=== PATIENT | male | born 1930 | race Asian ===

== ENCOUNTER 2018-12-19 19:14 | Inpatient (IN) | payer MEDICARE, BC ==
[~2018-12-19] VITALS: Ht 165.1 cm; Wt 50.8 kg
[2018-12-19 19:38] VITALS: BP 168/93
--- NOTE | 2018-12-19 19:38 | NUR ---
ER Nurse Note: Pt LEVAR RA 29 from home c/o headache since 12/18. s/p fal with BS 480 at bedside. Pt has wound on forehead; circular in size, no active bleeding. Pt states 4/10 pain in the head, aching. Pt a&ox4, VSS, no signs of distress. Will continue to monitor.
[2018-12-19 20:11] LABS: BASOPHILS % (AUTO) 0.2 % (0.0-2.0); EOSINOPHILS % (AUTO) 2.6 % (0.0-3.0); HEMATOCRIT 37.3 % (42.0-52.0); HEMOGLOBIN 12.9 G/DL (14.2-18.0); LYMPHOCYTES % (AUTO) 26.5 % (20.0-45.0); MEAN CORPUSCULAR VOLUME 91 FL (80-99); MONOCYTES % (AUTO) 4.5 % (1.0-10.0); NEUTROPHILS % (AUTO) 66.3 % (45.0-75.0); PLATELET COUNT 197 K/UL (150-450); RED BLOOD COUNT 4.08 M/UL (4.70-6.10); RED CELL DISTRIBUTION WIDTH 10.8 % (11.6-14.8); WHITE BLOOD COUNT 5.6 K/UL (4.8-10.8)
[2018-12-19 20:18] LABS: INR 0.9 (0.9-1.1)
[2018-12-19 20:33] LABS: ALANINE AMINOTRANSFERASE 12 U/L (12-78); ALBUMIN 3.9 G/DL (3.4-5.0); ALKALINE PHOSPHATASE 104 U/L (46-116); ANION GAP 11 mmol/L (5-15); ASPARTATE AMINO TRANSFERASE 15 U/L (15-37); BILIRUBIN,TOTAL 0.4 MG/DL (0.2-1.0); BLOOD UREA NITROGEN 25 mg/dL (7-18); CALCIUM 9.7 MG/DL (8.5-10.1); CARBON DIOXIDE 23 MMOL/L (21-32); CHLORIDE 96 MMOL/L (98-107); CREATININE 1.5 MG/DL (0.55-1.30); POTASSIUM 4.1 MMOL/L (3.5-5.1); SODIUM 130 MMOL/L (136-145)
--- NOTE | 2018-12-19 20:39 | Diagnostic Imaging Report ---
Indication: Reason For Exam: H/A Technique: Continuous helical CT scanning of the head was performed without intravenous contrast material. Axial and coronal 5 mm sections were generated. Radiation dose was minimized using automated exposure control Dose: Total Dose Length Product - DLP 1383.[address] Dose Index - CTDIvol(s) 70.38 mGy. Comparison: None available. FINDINGS: There is no acute intracranial hemorrhage, mass effect or cortical edema. The ventricles, cisterns and sulci are normal for age. There is moderate, predominantly frontal cortical cerebral volume loss. There are patchy subcortical and periventricular white matter hypodensities consistent with chronic ischemic microvascular disease. Mild maxillary sinus mucosal thickening. No focal lesions of the bony calvarium or soft tissues of the scalp are seen. IMPRESSION: No evidence of acute intracranial hemorrhage, mass effect or cortical edema. These findings are concordant with the [facility] preliminary report. The CT scanner at [facility] is accredited by the [employer] and the scans are performed using protocols designed to limit radiation exposure to as low as reasonably achievable to attain images of sufficient resolution adequate for diagnostic evaluation.
[2018-12-19] MEDS ORDERED: UNOBMED (20:59)
[2018-12-19] MEDS ORDERED: Insulin Human Regular 100units/ml 3ml IV ONE ×2 (21:00→22:45)
[2018-12-19 21:08] LABS: APPEARANCE,URINE CLEAR; BILIRUBIN, URINE NEGATIVE (NEGATIVE); COLOR,URINE PALE YELLOW; GLUCOSE, URINE (UA) 4+ (NEGATIVE); KETONES,URINE NEGATIVE (NEGATIVE); LEUKOCYTE ESTERASE ,URINE NEGATIVE (NEGATIVE); NITRITE,URINE NEGATIVE (NEGATIVE); PH,URINE 5 (4.5-8.0); PROTEIN,URINE 1+ (NEGATIVE); UROBILINOGEN,URINE NORMAL MG/DL (0.0-1.0)
[2018-12-19 22:00] VITALS: BP 145/76
--- NOTE | 2018-12-19 22:03 | NUR ---
ER Nurse Note: Pt calm, cooperative, no signs of distress. Pt on RA, VSS. Will recheck blood surgar after IVF and post administration of insulin. All orders completed per ERMD orders. Pending admission. All safety measrues met; mandeep continue to montior.
--- NOTE | 2018-12-19 22:05 | Emergency Room Report ---
History of Present Illness General Chief Complaint: Headache Source: Patient, Family Member Present Illness HPI 88-year-old male presents ED for evaluation. Brought in by EMS from home complaining of headache. States that he tripped and fell yesterday hitting his head. States he felt dizzy. Questionable LOC. Per EMS Accu-Chek was critically high. History of diabetes. Denies chest pain or shortness of breath. Denies fevers or chills. Pain is dull, 7 out of 10, nonradiating. Denies photophobia or blurry vision. Denies nausea or vomiting. No other aggravating relieving factors. Denies any other associated symptoms Allergies: Coded Allergies: No Known Allergies (Unverified , 12/19/18) Patient History Past Medical History: DM Past Surgical History: none Pertinent Family History: none Social History: Denies: smoking, alcohol use, drug use Immunizations: UTD Reviewed Nursing Documentation: PMH: Agreed; PSxH: Agreed Nursing Documentation-PMH Past Medical History: No History, Except For Hx Diabetes: Yes Review of Systems All Other Systems: negative except mentioned in HPI Physical Exam Vital Signs Date Time Temp Pulse Resp B/P (MAP) Pulse Ox O2 Delivery O2 Flow Rate FiO2 12/19/18 19:10 98.1 86 16 168/93 (118) 100 Room Air Sp02 EP Interpretation: reviewed, normal General Appearance: no apparent distress, alert, GCS 15, non-toxic Head: normocephalic, atraumatic Eyes: bilateral eye normal inspection, bilateral eye PERRL ENT: hearing grossly normal, normal pharynx, no angioedema, normal voice Neck: full range of motion, supple/symm/no masses Respiratory: chest non-tender, lungs clear, normal breath sounds, speaking full sentences Cardiovascular #1: regular rate, rhythm, no edema Cardiovascular #2: 2+ carotid (R), 2+ carotid (L), 2+ radial (R), 2+ radial (L) , 2+ dorsalis pedis (R), 2+ dorsalis pedis (L) Gastrointestinal: normal bowel sounds, non tender, soft, non-distended, no guarding, no rebound Rectal: deferred Genitourinary: normal inspection, no CVA tenderness Musculoskeletal: back normal, gait/station normal, normal range of motion, non- tender Neurologic: alert, oriented x3, responsive, motor strength/tone normal, sensory intact, speech normal Psychiatric: judgement/insight normal, memory normal, mood/affect normal, no suicidal/homicidal ideation Reflexes: 3+ bicep (R), 3+ bicep (L), 3+ tricep (R), 3+ tricep (L), 3+ knee (R) , 3+ knee (L) Lymphatic: no adenopathy Medical Decision Making Diagnostic Impression: Primary Impression: Syncope Qualified Codes: R55 - Syncope and collapse Additional Impressions: Head injury Qualified Codes: S09.90XA - Unspecified injury of head, initial encounter Hyperglycemia Renal insufficiency ER Course Hospital Course 88 yo M presents with syncopal episode + head injury. accucheck high Differential diagnoses include: CO/unstable angina, arrythmia, dehydration, CVA/ TIA, DKA Clinical course Patient placed on stretcher. 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 After initial history and physical I ordered labs, EKG, IVFs, CT Brain labs reviewed- no leukocytosis, hemoglobin/hematocrit ok, BUN/Cr elevated, glucose > 500 no evidence of DKA. UA negative EKG- NSR no acute ischemic changes inteprreted by me CT brain-unremarkable Given IV fluids. Given insulin. Case discussed with Dr. Kendrick and he agreed to accept the patient to his service for further care and support I. I feel this is a highly complex case requiring extensive working including EKG/Rhythm strip, Xray/CT/US, Blood/urine lab work, repeat exams while in ED, and administration of strong opiates/narcotics for pain control, admission to hospital or close patient follow up. Diagnosis - syncope, head injury, hypergylcemia, renal insufficiency admitted to telemetry in serious condition Labs Test 12/19/18 19:30 12/19/18 20:10 White Blood Count 5.6 K/UL (4.8-10.8) Red Blood Count 4.08 M/UL (4.70-6.10) Hemoglobin 12.9 G/DL (14.2-18.0) Hematocrit 37.3 % (42.0-52.0) Mean Corpuscular Volume 91 FL (80-99) Mean Corpuscular Hemoglobin 31.5 PG (27.0-31.0) Mean Corpuscular Hemoglobin Concent 34.5 G/DL (32.0-36.0) Red Cell Distribution Width 10.8 % (11.6-14.8) Platelet Count 197 K/UL (150-450) Mean Platelet Volume 6.1 FL (6.5-10.1) Neutrophils (%) (Auto) 66.3 % (45.0-75.0) Lymphocytes (%) (Auto) 26.5 % (20.0-45.0) Monocytes (%) (Auto) 4.5 % (1.0-10.0) Eosinophils (%) (Auto) 2.6 % (0.0-3.0) Basophils (%) (Auto) 0.2 % (0.0-2.0) Prothrombin Time 10.1 SEC (9.30-11.50) Prothromb Time International Ratio 0.9 (0.9-1.1) Activated Partial Thromboplast Time 25 SEC (23-33) Sodium Level 130 MMOL/L (136-145) Potassium Level 4.1 MMOL/L (3.5-5.1) Chloride Level 96 MMOL/L (98-107) Carbon Dioxide Level 23 MMOL/L (21-32) Anion Gap 11 mmol/L (5-15) Blood Urea Nitrogen 25 mg/dL (7-18) Creatinine 1.5 MG/DL (0.55-1.30) Estimat Glomerular Filtration Rate mL/min (>60) Glucose Level 503 MG/DL (74-106) Calcium Level 9.7 MG/DL (8.5-10.1) Magnesium Level 2.0 MG/DL (1.8-2.4) Total Bilirubin 0.4 MG/DL (0.2-1.0) Aspartate Amino Transf (AST/SGOT) 15 U/L (15-37) Alanine Aminotransferase (ALT/SGPT) 12 U/L (12-78) Alkaline Phosphatase 104 U/L (46-116) Troponin I 0.000 ng/mL (0.000-0.056) Pro-B-Type Natriuretic Peptide 174 pg/mL (0-125) Total Protein 8.0 G/DL (6.4-8.2) Albumin 3.9 G/DL (3.4-5.0) Globulin 4.1 g/dL Albumin/Globulin Ratio 1.0 (1.0-2.7) Acetone Level Negative (NEGATIVE) Urine Color Pale yellow Urine Appearance Clear Urine pH 5 (4.5-8.0) Urine Specific [place] 1.010 (1.005-1.035) Urine Protein 1+ (NEGATIVE) Urine Glucose (UA) 4+ (NEGATIVE) Urine Ketones Negative (NEGATIVE) Urine Blood 1+ (NEGATIVE) Urine Nitrite Negative (NEGATIVE) Urine Bilirubin Negative (NEGATIVE) Urine Urobilinogen Normal MG/DL (0.0-1.0) Urine Leukocyte Esterase Negative (NEGATIVE) Urine RBC 2-4 /HPF (0 - 0) Urine WBC 0-2 /HPF (0 - 0) Urine Squamous Epithelial Cells None /LPF (NONE/OCC) Urine Bacteria Few /HPF (NONE) EKG Diagnostic Results Rate: normal Rhythm: NSR ST Segments: no acute changes ASA given to the pt in ED: No Rhythm Strip Diag. Results EP Interpretation: yes Rhythm: NSR, no PVC's, no ectopy CT/MRI/US Diagnostic Results CT/MRI/US Diagnostic Results : Imaging Test Ordered: CT Head Impression no acute process Last Vital Signs Date Time Temp Pulse Resp B/P (MAP) Pulse Ox O2 Delivery O2 Flow Rate FiO2 12/19/18 19:38 98.1 88 16 168/93 100 Room Air Status: improved Disposition: ADMITTED INPATIENT Condition: Serious Referrals: NOT CHOSEN IPA/,REFERRING (PCP) Marek Garland MD Dec 19, 2018 22:05
--- NOTE | 2018-12-19 22:32 | NUR ---
ER Nurse Note: BS 435; aware and awaiting orders. Pt a&ox4, VSS, no signs of distress. Will endorse to receiving nurse for contintuiy of care.
--- NOTE | 2018-12-19 22:45 | NUR ---
ER Nurse Note: Report given to RIMMA Wilson for continuity of care. Pt a&ox4, VSS, no signs of distress, RA. All orders completed per ERMD orders. Pt left with all belongings.
--- NOTE | 2018-12-19 23:10 | NUR ---
NURSE NOTES: Received patient from RIMMA Simms. patient is AO X4, denies pain at this time. patient is on room air, tolerating well. no s/sx of respiratory distress noted at this time. no s/sx of acute cardiac distress noted at this time. IV site is patent and intact, asymptomatic. skin alteration noted on posterior head; photo taken, dressing applied. belongings reviewed and noted. will contact MD for admitting orders. bed in lowest position and locked, siderails up X2, call light within reach. will continue to monitor.
--- NOTE | 2018-12-19 23:29 | NUR ---
NURSE NOTES: left message for MD regarding admission orders. awaiting call back.
[2018-12-19 23:30] VITALS: BP 150/71
--- NOTE | 2018-12-19 23:35 | NUR ---
NURSE NOTES: Received call back from MD. will carry out orders per physician.
[2018-12-20] MEDS ORDERED: Acetaminophen 500mg (ES) tab ORAL PRN (01:00)
[2018-12-20 04:00] VITALS: BP 142/68
[2018-12-20 05:05] LABS: BASOPHILS % (AUTO) 0.5 % (0.0-2.0); EOSINOPHILS % (AUTO) 2.1 % (0.0-3.0); HEMATOCRIT 31.4 % (42.0-52.0); HEMOGLOBIN 10.5 G/DL (14.2-18.0); LYMPHOCYTES % (AUTO) 24.9 % (20.0-45.0); MEAN CORPUSCULAR VOLUME 94 FL (80-99); MONOCYTES % (AUTO) 6.3 % (1.0-10.0); NEUTROPHILS % (AUTO) 66.2 % (45.0-75.0); PLATELET COUNT 180 K/UL (150-450); RED BLOOD COUNT 3.36 M/UL (4.70-6.10); RED CELL DISTRIBUTION WIDTH 10.7 % (11.6-14.8); WHITE BLOOD COUNT 5.2 K/UL (4.8-10.8)
[2018-12-20 05:35] LABS: ALANINE AMINOTRANSFERASE 11 U/L (12-78); ALBUMIN/GLOBULIN RATIO 1.1 (1.0-2.7); ALKALINE PHOSPHATASE 78 U/L (46-116); ANION GAP 10 mmol/L (5-15); ASPARTATE AMINO TRANSFERASE 10 U/L (15-37); BILIRUBIN,TOTAL 0.4 MG/DL (0.2-1.0); BLOOD UREA NITROGEN 24 mg/dL (7-18); CALCIUM 8.2 MG/DL (8.5-10.1); CARBON DIOXIDE 20 MMOL/L (21-32); CHLORIDE 106 MMOL/L (98-107); CREATININE 1.2 MG/DL (0.55-1.30); POTASSIUM 4.3 MMOL/L (3.5-5.1); SODIUM 136 MMOL/L (136-145)
[2018-12-20] MEDS: NovoLOG Insulin Flexpen SUBQ SCH ×4 (06:19→22:34)
--- NOTE | 2018-12-20 07:20 | NUR ---
NURSE NOTES: RECEIVED BED SIDE REPORT FROM ANA MARIA SHANKS OF NOC SHIFT. RECEIVED PT RESTING IN BED COMFORTABLY .PT AOX4 DENIES PAIN OR ANY DISCOMFORT AT THIS TIME. FULL BODY ASSESSMENT DONE.NO ACUTE DISTRESS NOTED AT THIS TIME.WILL CONT TO MONITOR.
--- NOTE | 2018-12-20 07:40 | NUR ---
HAND-OFF: Report given to RIMMA Douglass. patient is in stable condition.
[2018-12-20 08:00] VITALS: BP 134/61
[2018-12-20 12:00] VITALS: BP 136/70
--- NOTE | 2018-12-20 13:59 | Cardiac Electrophysiology PN ---
Subjective Subjective [id number] Objective Last 24 Hour Vital Signs Date Time Temp Pulse Resp B/P (MAP) Pulse Ox O2 Delivery O2 Flow Rate FiO2 12/20/18 12:00 98.7 71 21 136/70 (92) 96 12/20/18 11:49 69 12/20/18 08:00 72 12/20/18 08:00 Room Air 12/20/18 08:00 98.9 73 22 134/61 (85) 12/20/18 04:00 98.7 82 20 142/68 (92) 97 12/20/18 04:00 Room Air 12/20/18 04:00 82 12/20/18 00:00 69 12/19/18 23:34 Room Air 12/19/18 23:30 98.2 89 20 150/71 (97) 97 12/19/18 22:45 98.1 88 17 145/76 100 Room Air 12/19/18 22:00 98.1 88 17 145/76 100 Room Air 12/19/18 19:38 98.1 88 16 168/93 100 Room Air 12/19/18 19:10 98.1 86 16 168/93 (118) 100 Room Air Intake and Output 12/19/18 12/20/18 18:59 06:59 Intake Total 4000 ml Output Total 1000 ml Balance 3000 ml Intake IV Total 4000 ml Output Urine Total 1000 ml # Voids 5 Laboratory Tests Test 12/19/18 19:30 12/19/18 20:10 12/20/18 03:05 White Blood Count 5.6 K/UL (4.8-10.8) 5.2 K/UL (4.8-10.8) Red Blood Count 4.08 M/UL (4.70-6.10) L 3.36 M/UL (4.70-6.10) L Hemoglobin 12.9 G/DL (14.2-18.0) L 10.5 G/DL (14.2-18.0) L Hematocrit 37.3 % (42.0-52.0) L 31.4 % (42.0-52.0) L Mean Corpuscular Volume 91 FL (80-99) 94 FL (80-99) Mean Corpuscular Hemoglobin 31.5 PG (27.0-31.0) H 31.4 PG (27.0-31.0) H Mean Corpuscular Hemoglobin Concent 34.5 G/DL (32.0-36.0) 33.5 G/DL (32.0-36.0) Red Cell Distribution Width 10.8 % (11.6-14.8) L 10.7 % (11.6-14.8) L Platelet Count 197 K/UL (150-450) 180 K/UL (150-450) Mean Platelet Volume 6.1 FL (6.5-10.1) L 6.4 FL (6.5-10.1) L Neutrophils (%) (Auto) 66.3 % (45.0-75.0) 66.2 % (45.0-75.0) Lymphocytes (%) (Auto) 26.5 % (20.0-45.0) 24.9 % (20.0-45.0) Monocytes (%) (Auto) 4.5 % (1.0-10.0) 6.3 % (1.0-10.0) Eosinophils (%) (Auto) 2.6 % (0.0-3.0) 2.1 % (0.0-3.0) Basophils (%) (Auto) 0.2 % (0.0-2.0) 0.5 % (0.0-2.0) Prothrombin Time 10.1 SEC (9.30-11.50) Prothromb Time International Ratio 0.9 (0.9-1.1) Activated Partial Thromboplast Time 25 SEC (23-33) Sodium Level 130 MMOL/L (136-145) L 136 MMOL/L (136-145) Potassium Level 4.1 MMOL/L (3.5-5.1) 4.3 MMOL/L (3.5-5.1) Chloride Level 96 MMOL/L (98-107) L 106 MMOL/L (98-107) Carbon Dioxide Level 23 MMOL/L (21-32) 20 MMOL/L (21-32) L Anion Gap 11 mmol/L (5-15) 10 mmol/L (5-15) Blood Urea Nitrogen 25 mg/dL (7-18) H 24 mg/dL (7-18) H Creatinine 1.5 MG/DL (0.55-1.30) H 1.2 MG/DL (0.55-1.30) Estimat Glomerular Filtration Rate mL/min (>60) mL/min (>60) Glucose Level 503 MG/DL (74-106) *H 386 MG/DL (74-106) #H Calcium Level 9.7 MG/DL (8.5-10.1) 8.2 MG/DL (8.5-10.1) L Magnesium Level 2.0 MG/DL (1.8-2.4) Total Bilirubin 0.4 MG/DL (0.2-1.0) 0.4 MG/DL (0.2-1.0) Aspartate Amino Transf (AST/SGOT) 15 U/L (15-37) 10 U/L (15-37) L Alanine Aminotransferase (ALT/SGPT) 12 U/L (12-78) 11 U/L (12-78) L Alkaline Phosphatase 104 U/L (46-116) 78 U/L (46-116) Troponin I 0.000 ng/mL (0.000-0.056) Pro-B-Type Natriuretic Peptide 174 pg/mL (0-125) H Total Protein 8.0 G/DL (6.4-8.2) 5.8 G/DL (6.4-8.2) L Albumin 3.9 G/DL (3.4-5.0) 3.0 G/DL (3.4-5.0) L Globulin 4.1 g/dL 2.8 g/dL Albumin/Globulin Ratio 1.0 (1.0-2.7) 1.1 (1.0-2.7) Acetone Level Negative (NEGATIVE) Urine Color Pale yellow Urine Appearance Clear Urine pH 5 (4.5-8.0) Urine Specific [place] 1.010 (1.005-1.035) Urine Protein 1+ (NEGATIVE) H Urine Glucose (UA) 4+ (NEGATIVE) H Urine Ketones Negative (NEGATIVE) Urine Blood 1+ (NEGATIVE) H Urine Nitrite Negative (NEGATIVE) Urine Bilirubin Negative (NEGATIVE) Urine Urobilinogen Normal MG/DL (0.0-1.0) Urine Leukocyte Esterase Negative (NEGATIVE) Urine RBC 2-4 /HPF (0 - 0) H Urine WBC 0-2 /HPF (0 - 0) Urine Squamous Epithelial Cells None /LPF (NONE/OCC) Urine Bacteria Few /HPF (NONE) Hemoglobin A1c 12.6 % (4.3-6.0) H Cornelio Donato MD Dec 20, 2018 13:59
[2018-12-20] MEDS ORDERED: SYNTHROID50 MCG ORAL (15:42)
[2018-12-20] MEDS ORDERED: MELOXICAM7.5 MG/5 M ORAL (15:42)
[2018-12-20] MEDS ORDERED: ATORVASTATIN CA20 MG ORAL (15:42)
[2018-12-20] MEDS ORDERED: LEVEMIR FL100 UNIT/1 SUBQ (15:42)
[2018-12-20] MEDS ORDERED: JANUVIA100 MG ORAL (15:42)
[2018-12-20 16:00] VITALS: BP 145/75
--- NOTE | 2018-12-20 17:46 | Cardiology Report ---
APPROVED REPORT EXAM: Two-dimensional and M-mode echocardiogram with Doppler and color Doppler. INDICATION Altered mental status M-Mode DIMENSIONS IVSd0.5 (0.7-1.1cm)Left Atrium (MM)3.4 (1.6-4.0cm) LVDd3.3 (3.5-5.6cm)Aortic Root2.5 (2.0-3.7cm) PWd1.0 (0.7-1.1cm)Aortic Cusp Exc.1.6 (1.5-2.0cm) IVSs0.8 cm LVDs2.3 (2.5-4.0cm) PWs0.9 cm Normal left ventricular chamber size, systolic function and wall motion . Left ventricular ejection fraction estimated to be 50%. Mild left ventricular hypertrophy. No evidence of pericardial effusion. All other cardiac chamber sizes are within normal limits. Aortic valve calcification with normal cusp excursion . Mildly thickened mitral valve leaflets with normal excursion. Mild mitral annulus and aortic root calcification. Pulmonic valve not well visualized. IVC at normal size with physiologic collapse . A color flow and spectral Doppler study was performed and revealed: No aortic insufficiency . Mitral inflow indicates normal left ventricular diastolic function. Trace mitral regurgitation. Trace tricuspid regurgitation. Mitral diastolic velocities suggest reduced left ventricular relaxation c/w mild LV diastolic dysfunction (Grade I ). Tricuspid systolic velocities suggests peak right ventricular systolic pressure of 15 mmHg.
--- NOTE | 2018-12-20 18:17 | Cardiology Report ---
APPROVED REPORT EKG Measurement Heart [id number] HI [id number] Normal sinus rhythm Nonspecific ST abnormality Abnormal ECG
--- NOTE | 2018-12-20 18:30 | Consultation ---
DATE OF CONSULTATION: 12/20/2018 CARDIOLOGY CONSULTATION CONSULTING PHYSICIAN: Cornelio Donato M.D. REFERRING PHYSICIAN: Peyman Kendrick M.D. REASON FOR CONSULTATION: Accelerated hypertension and syncope. HISTORY OF PRESENT ILLNESS: The patient is an 88-year-old [place] gentleman with history of hypertension and diabetes, was brought from home for severe headache. The patient apparently had a trip and fall yesterday hitting his head. There was a questionable loss of consciousness. The patient denies any chest pain or shortness of breath and denies any photophobia or blurring of the vision. The blood pressure in the ER was 168/93 with the heart rate of 86. Cardiology consultation was obtained for further evaluation. REVIEW OF SYSTEMS: Negative other than what was mentioned in the history of present illness. PAST MEDICAL HISTORY: As mentioned above. FAMILY HISTORY: Noncontributory. SOCIAL HISTORY: He lives at home. Does not smoke or drink alcohol. PHYSICAL EXAMINATION: VITAL SIGNS: Blood pressure is 136/70, pulse 71, respirations 20, and temperature 98.7. HEAD AND NECK: Shows no JVD. LUNGS: Clear. CARDIOVASCULAR: Shows regular S1 and S2 with no gallop or murmur. ABDOMEN: Soft. EXTREMITIES: No pitting edema. LABORATORY AND DIAGNOSTIC DATA: His EKG showed normal sinus rhythm with nonspecific ST abnormalities. His labs show white count of 5.2, hemoglobin 10.5, hematocrit of 31.5, and platelet count of 180,000. Sodium , potassium 4.3, BUN of 24, creatinine 1.2, and glucose was 503 on admission and today 386. Troponin is negative. BNP is 174. ASSESSMENT AND PLAN: 1. Syncope. Likely due to uncontrolled diabetes, glucose was 503. The first troponin is negative. We will completely rule out [place] protocol and get an echocardiogram for further evaluation. 2. Hypertension. Currently, off antihypertensives as the blood pressure has come down to 130/70. 3. Diabetes. On insulin. Thank you very much, Dr. Kendrick, for letting me participate in the care of this patient. Please do not hesitate to contact me for any questions regarding my evaluation. Cornelio Donato M.D. DR: JEANIE JOB#: [id number] CC:
--- NOTE | 2018-12-20 19:25 | NUR ---
HAND-OFF: Report given to .CARLOS SHANKS.
--- NOTE | 2018-12-20 19:30 | NUR ---
NURSE NOTES: Received patient from RIMMA Morley. patient is AO X4, denies pain at this time. Patient is on room air, tolerating well. no s/sx of respiratory distress noted at this time. no s/sx of acute cardiac distress noted at this time. IV site is patent and intact, asymptomatic. Skin alteration noted on posterior head. Bed in lowest position and locked, siderails up X2, call light within reach. Will continue to monitor and follow plan of care.
[2018-12-20 20:00] VITALS: BP 134/72
[2018-12-21] VITALS: BP 140/70
[2018-12-21 04:00] VITALS: BP 138/76
--- NOTE | 2018-12-21 04:45 | History and Physical Report ---
DATE OF ADMISSION: 12/19/2018 HISTORY OF PRESENT ILLNESS: The patient is here for status post syncope and fall. The patient had a laceration on his head from the fall. The patient also has hyperglycemia and hypertension, most likely due to hyperglycemia and azotemia also, but not in DKA. The patient says no to everything. He is mostly Romansh speaking; however, denies headache. Denies nausea, vomiting, or diarrhea. Denies fever or chills. Denies shortness of breath. Denies cough. Denies chills. PAST MEDICAL HISTORY: NIDDM, hypothyroidism, degenerative joint disease, and hyperlipidemia. ALLERGIES: No known allergies. PAST SURGICAL HISTORY: None. SOCIAL HISTORY: Denies history of smoking, alcohol, or illicit drugs. FAMILY HISTORY: Noncontributory. MEDICATIONS: Levoxyl, Levemir, meloxicam, Januvia, and Lipitor. REVIEW OF SYSTEMS: HEENT: Denies headaches. RESPIRATORY: Denies shortness of breath. Denies cough. CARDIOVASCULAR: Denies chest pain. GASTROINTESTINAL: Denies nausea, vomiting, or diarrhea. EXTREMITIES: Denies pain. CENTRAL NERVOUS SYSTEM: Denies change in speech pattern. PHYSICAL EXAMINATION: VITAL SIGNS: Temperature is 98.9 degrees, pulse is 72, and blood pressure 134/61. HEENT: PERRLA. The patient had scalp laceration on the head. NECK: Supple. No lymphadenopathy. CHEST: Clear to auscultation. CARDIOVASCULAR: Regular rate and rhythm. ABDOMEN: Soft, nontender, and nondistended. No organomegaly. EXTREMITIES: No edema. Reflexes equal on both sides. Moves all four extremities. LABORATORY DATA: WBC of 5.6, hemoglobin of 12.9, and platelets of 197,000. Sodium 130, potassium 4.1, BUN of 25, creatinine 1.5, and glucose of 503. ASSESSMENT AND PLAN: Hyponatremia due to hyperglycemia, not DKA. I have consulted Dr. Donato, Dr. Roberson, and Dr. Sifuentes for the above-mentioned diagnoses and treatment. Peyman Kendrick M.D. DR: JACLYN JOB#: [id number] CC:
[2018-12-21] MEDS: NovoLOG Insulin Flexpen SUBQ SCH ×4 (06:09→21:00)
--- NOTE | 2018-12-21 07:39 | NUR ---
HAND-OFF: Report given to Mercedes SHANKS.
--- NOTE | 2018-12-21 07:40 | NUR ---
NURSE NOTES: received pt. awake alert Ox4. call light within reach. pt no respiratory distress noted. no SOB. pt is stable.
[2018-12-21 08:00] VITALS: BP 137/65
--- NOTE | 2018-12-21 11:08 | NUR ---
NURSE NOTES: pt off the unit due to CT scan.
--- NOTE | 2018-12-21 11:19 | Cardiac Electrophysiology PN ---
Assessment/Plan Assessment/Plan 1. Syncope. Likely due to uncontrolled diabetes, glucose was 503. Ruled out for [place] protocol and echocardiogram EF 60% 2. Hypertension. Currently, off antihypertensives as the blood pressure has come down to 130/70. 3. Diabetes. On insulin. Subjective Subjective No CP or SOB. In SR Objective Last 24 Hour Vital Signs Date Time Temp Pulse Resp B/P (MAP) Pulse Ox O2 Delivery O2 Flow Rate FiO2 12/21/18 08:00 76 79 103 12/21/18 08:00 Room Air 12/21/18 08:00 97.3 76 17 137/65 (89) 97 12/21/18 07:58 84 12/21/18 04:00 Room Air 12/21/18 04:00 98.3 73 16 138/76 (96) 97 12/21/18 04:00 76 12/21/18 00:00 70 12/21/18 00:00 98.8 74 16 140/70 (93) 98 12/21/18 00:00 Room Air 12/20/18 20:00 83 95 101 12/20/18 20:00 Room Air 12/20/18 20:00 98.8 83 18 134/72 (92) 95 12/20/18 20:00 86 12/20/18 16:00 98.9 78 21 145/75 (98) 97 12/20/18 16:00 Room Air 12/20/18 16:00 83 12/20/18 14:35 78 90 95 12/20/18 12:00 98.7 71 21 136/70 (92) 96 12/20/18 12:00 Room Air 12/20/18 11:49 69 Intake and Output 12/20/18 12/21/18 18:59 06:59 Intake Total 800 ml Output Total 550 ml Balance 250 ml Intake Oral 800 ml Output Urine Total 550 ml # Voids 3 Laboratory Tests Test 12/21/18 03:11 Troponin I 0.012 ng/mL (0.000-0.056) Objective HEAD AND NECK: Shows no JVD. LUNGS: Clear. CARDIOVASCULAR: Shows regular S1 and S2 with no gallop or murmur. ABDOMEN: Soft. EXTREMITIES: No pitting edema. Cornelio Donato MD Dec 21, 2018 11:19
--- NOTE | 2018-12-21 11:49 | NUR ---
RD ASSESSMENT & RECOMMENDATIONS SEE CARE ACTIVITY FOR COMPLETE ASSESSMENT DAILY ESTIMATED NEEDS: Needs based on Underweight, DM 51kg 30-35 kcals/kg 1582-9606 total kcals 1-1.5 g protein/kg 51-77 g total protein 25-30ml/kcal mL/kg 9451-1395 total fluid mLs NUTRITION DIAGNOSIS: *Increased kcal and pro needs r/t underweight status as evidenced by pt is 83% of [place] Body Weight w/ generalized moderate to severe wasting. *Altered nutrition related lab values r/t diabetes as evidenced by BG on adm 503, A1C 12.6. CURRENT DIET: CCHO MED ms chopped PO DIET RECOMMENDATIONS: CCHO LOW/ texture as tolerated ADDITIONAL RECOMMENDATIONS: 1) Maintain calibrated bed scale wt + Weekly wts given underweight status 2) Add Glucerna 1 tetra niesha BID in b/w meals 3) B-complex daily 4) Consider long acting insulin for improved glycemic control
[2018-12-21 11:53] VITALS: BP 157/88
--- NOTE | 2018-12-21 12:51 | NUR ---
[employer] 88 YO MALE BIBA FROM HOME TO ER CC HEADACHE X 1 HOUR SI: SYNCOPE,HYPERGLYCEMIA T. 98.1 HR 86 RR 16 B/P 168/93 NA 130 BUN 25 CR 1.5 GLU 503 BNP 174 UA+PROTEIN,GLU,BLOOD,RBC,BACTERIA HEAD CT= NEGATIVE IS: IV BOLUS NS X 2 LITERS INSULIN IV 10 UNITS ADMITTED TO STEP DOWN STEP DOWN STATUS DCP RETURN HOME
[2018-12-21 16:00] VITALS: BP 137/72
--- NOTE | 2018-12-21 16:14 | Consultation ---
History of Present Illness General Chief Complaint: Headache Present Illness Allergies: Coded Allergies: No Known Allergies (Unverified , 12/19/18) Medication History Scheduled Atorvastatin Calcium* (Atorvastatin Calcium*), 10 MG ORAL DAILY, (Reported) Insulin Detemir (Levemir Flexpen), 0 SUBQ DAILY, (Reported) Levothyroxine Sodium (Synthroid), 50 MCG ORAL DAILY, (Reported) Meloxicam (Meloxicam), 7.5 MG ORAL DAILY, (Reported) Sitagliptin (Januvia), 100 MG ORAL DAILY, (Reported) Miscellaneous Medications Unable to Obtain Medications (Unable To Obtain Meds), Unknown Dose, (Reported) Patient History Healthcare decision maker SELF/FAMILY Resuscitation status Full Code Advanced Directive on File No Physical Exam Last 24 Hour Vital Signs Date Time Temp Pulse Resp B/P (MAP) Pulse Ox O2 Delivery O2 Flow Rate FiO2 12/21/18 16:00 98.2 85 17 137/72 (93) 96 12/21/18 15:30 83 12/21/18 11:53 97.5 81 18 157/88 (111) 97 12/21/18 11:31 80 12/21/18 08:00 76 79 103 12/21/18 08:00 Room Air 12/21/18 08:00 97.3 76 17 137/65 (89) 97 12/21/18 07:58 84 12/21/18 04:00 Room Air 12/21/18 04:00 98.3 73 16 138/76 (96) 97 12/21/18 04:00 76 12/21/18 00:00 70 12/21/18 00:00 98.8 74 16 140/70 (93) 98 12/21/18 00:00 Room Air 12/20/18 20:00 83 95 101 12/20/18 20:00 Room Air 12/20/18 20:00 98.8 83 18 134/72 (92) 95 12/20/18 20:00 86 Intake and Output 12/20/18 12/21/18 18:59 06:59 Intake Total 800 ml Output Total 550 ml Balance 250 ml Intake Oral 800 ml Output Urine Total 550 ml # Voids 3 Laboratory Tests Test 12/21/18 03:11 Troponin I 0.012 ng/mL (0.000-0.056) Height (Feet): 5 Height (Inches): 5.00 Weight (Pounds): 112 Medications Current Medications Medications (Trade) Dose Ordered Sig/Chilo Route PRN Reason Start Time Stop Time Status Last Admin Dose Admin Acetaminophen (Tylenol) 500 mg Q4H PRN ORAL Mild Pain/Temp > 100.5 12/20/18 01:00 01/19/19 00:59 Atorvastatin Calcium (Lipitor) 10 mg DAILY ORAL 12/21/18 09:00 01/20/19 08:59 12/21/18 08:57 Dextrose (Dextrose 50%) 25 ml Q30M PRN IV Hypoglycemia 12/20/18 01:00 01/19/19 00:59 Dextrose (Dextrose 50%) 50 ml Q30M PRN IV Hypoglycemia 12/20/18 01:00 01/19/19 00:59 Insulin Aspart (NovoLOG) BEFORE MEALS AND HS SUBQ 12/20/18 06:30 01/19/19 06:29 12/21/18 12:19 Levothyroxine Sodium (Synthroid) 50 mcg DAILY@0630 ORAL 12/21/18 06:30 01/20/19 06:29 12/21/18 06:08 Sitagliptin Phosphate (Januvia) 100 mg DAILY ORAL 12/21/18 09:00 01/20/19 08:59 12/21/18 08:57 Assessment/Plan Assessment/Plan: Hematology Consultation Note REQ MD: Brigitte Moreau RFC: Anemia eval DOS: 12/21/18 Chief Complaint: Headache ID 88-year-old male presents ED for evaluation. Brought in by EMS from home complaining of headache. States that he tripped and fell yesterday hitting his head. States he felt dizzy. Questionable LOC. Per EMS Accu-Chek was critically high. History of diabetes. Denies chest pain or shortness of breath. Denies fevers or chills. Pain is dull, 7 out of 10, nonradiating. Denies photophobia or blurry vision. Denies nausea or vomiting. No other aggravating relieving factors. Denies any other associated symptoms. At this time, bs have improved, cards ruling out mi, noted to have anemia, persistent and heme consulted. Coded Allergies: No Known Allergies (Unverified , 12/19/18) Patient History Past Medical History: DM Past Surgical History: none Pertinent Family History: none Social History: Denies: smoking, alcohol use, drug use Immunizations: UTD Reviewed Nursing Documentation: PMH: Agreed; PSxH: Agreed Past Medical History: No History, Except For Hx Diabetes: Yes Review of Systems All Other Systems: negative except mentioned in HPI Physical Exam: Vitals: reviewed General Appearance: NAD HEENT: normocephalic, atraumatic Neck: non-tender, normal alignment Respiratory/Chest: normal breath sounds bilaterally Cardiovascular/Chest: normal peripheral pulses, normal rate Abdomen: normal bowel sounds, soft, nontender Extremities: normal range of motion Labs: reviewed Imaging: noted Assessment and Recs: # Anemia of chronic disease (or of iron deficiency) due to underlying chronic medical issues, multifactorial --> Anemia workup has been ordered, rule out gi bleed --> No evidence of hemolysis is noted, peripheral smear has been reviewed. --> Hgb goal >7. Transfuse prn. --> Epogen or iron at this time is not particularly indicated --> Medications have been reviewed --> low threshold for gi evaluation in case has occult + --> bone marrow biopsy is not indicated given the other more likely causes # Syncope with head injury, ct brain neg --> cards consulted, on htn meds # Head injury --> tylenol and nsaids # Hyperglycemia --> a1c goal <8 --> accuchecks and qac/qhs # AMIRAH --> as per renal care --> ivf given The timing of this note does not necessarily reflect the time of the patient was seen. Greatly appreciate consultation! Juan Pablo Mittal MD Dec 21, 2018 16:14
--- NOTE | 2018-12-21 18:44 | NUR ---
NURSE NOTES: dropped off home medications to the pharmacy. receipt placed in pt's chart.
[2018-12-21 18:46] LABS: BASOPHILS % (AUTO) 0.3 % (0.0-2.0); HEMATOCRIT 36.5 % (42.0-52.0); HEMOGLOBIN 12.8 G/DL (14.2-18.0); LYMPHOCYTES % (AUTO) 26.1 % (20.0-45.0); MEAN CORPUSCULAR VOLUME 90 FL (80-99); MONOCYTES % (AUTO) 5.3 % (1.0-10.0); NEUTROPHILS % (AUTO) 66.3 % (45.0-75.0); PLATELET COUNT 199 K/UL (150-450); RED BLOOD COUNT 4.06 M/UL (4.70-6.10); RED CELL DISTRIBUTION WIDTH 10.1 % (11.6-14.8); WHITE BLOOD COUNT 6.9 K/UL (4.8-10.8)
[2018-12-21 19:06] LABS: FERRITIN 91 NG/ML (8-388)
[2018-12-21 19:17] LABS: % IRON SATURATION 26 % (15-50); IRON 63 ug/dL (50-175); TOTAL IRON BINDING CAPACITY 242 ug/dL (250-450)
--- NOTE | 2018-12-21 19:20 | NUR ---
HAND-OFF: Report given to Brigitte Vizcarra RN.
[2018-12-21 20:00] VITALS: BP 130/77
--- NOTE | 2018-12-21 22:43 | General Progress Note ---
Assessment/Plan Problem List: (1) Renal insufficiency ICD Codes: N28.9 - Disorder of kidney and ureter, unspecified SNOMED: 450978150, 992840214 (2) Head injury ICD Codes: S09.90XA - Unspecified injury of head, initial encounter SNOMED: 09469492, 831614735 Qualifiers: Qualified Codes: S09.90XA - Unspecified injury of head, initial encounter (3) Hyperglycemia ICD Codes: R73.9 - Hyperglycemia, unspecified SNOMED: 12258533 (4) Syncope ICD Codes: R55 - Syncope and collapse SNOMED: 940121222, [id number] Qualifiers: Qualified Codes: R55 - Syncope and collapse Status: progressing Assessment/Plan: hyperglycemia ia improving afebrile s/p head trauma after a fall azotmia improving Subjective ROS Limited/Unobtainable: Yes Allergies: Coded Allergies: No Known Allergies (Unverified , 12/19/18) Objective Last 24 Hour Vital Signs Date Time Temp Pulse Resp B/P (MAP) Pulse Ox O2 Delivery O2 Flow Rate FiO2 12/21/18 21:00 Room Air 12/21/18 20:00 98.6 93 18 130/77 (94) 97 12/21/18 20:00 93 12/21/18 16:00 98.2 85 17 137/72 (93) 96 12/21/18 15:30 83 12/21/18 11:53 97.5 81 18 157/88 (111) 97 12/21/18 11:31 80 12/21/18 08:00 76 79 103 12/21/18 08:00 Room Air 12/21/18 08:00 97.3 76 17 137/65 (89) 97 12/21/18 07:58 84 12/21/18 04:00 Room Air 12/21/18 04:00 98.3 73 16 138/76 (96) 97 12/21/18 04:00 76 12/21/18 00:00 70 12/21/18 00:00 98.8 74 16 140/70 (93) 98 12/21/18 00:00 Room Air Intake and Output 12/20/18 12/21/18 18:59 06:59 Intake Total 800 ml Output Total 550 ml Balance 250 ml Intake Oral 800 ml Output Urine Total 550 ml # Voids 3 Laboratory Tests 12/21/18 03:11: Troponin I 0.012 12/21/18 17:48: White Blood Count 6.9, Red Blood Count 4.06L, Hemoglobin 12.8L, Hematocrit 36.5L , Mean Corpuscular Volume 90, Mean Corpuscular Hemoglobin 31.6H, Mean Corpuscular Hemoglobin Concent 35.2, Red Cell Distribution Width 10.1L, Platelet Count 199, Mean Platelet Volume 6.0L, Neutrophils (%) (Auto) 66.3, Lymphocytes (%) (Auto) 26.1, Monocytes (%) (Auto) 5.3, Eosinophils (%) (Auto) 2.0, Basophils (%) (Auto) 0.3, Differential Total Cells Counted 100, Neutrophils % (Manual) 65, Lymphocytes % (Manual) 24, Monocytes % (Manual) 5, Eosinophils % (Manual) 1, Basophils % (Manual) 3H, Band Neutrophils 2, Platelet Estimate Adequate, Platelet Morphology Normal, Red Blood Cell Morphology Normal , Prothrombin Time 10.3, Prothromb Time International Ratio 1.0, Iron Level 63, Total Iron Binding Capacity 242L, Percent Iron Saturation 26, Unsaturated Iron Binding 179, Ferritin 91, Carcinoembryonic Antigen [Pending], Vitamin B12 Level 607, Folate 7.8L, Thyroid Stimulating Hormone (TSH) 1.694 Height (Feet): 5 Height (Inches): 5.00 Weight (Pounds): 112 Cardiovascular: normal rate Respiratory/Chest: lungs clear Abdomen: soft Peyman Kendrick MD Dec 21, 2018 22:43
[2018-12-22] VITALS: BP 131/74
--- NOTE | 2018-12-22 01:00 | Geriatric Medicine Prog Note ---
DATE: 12/21/2018 SUBJECTIVE: The patient . He is very comfortable today. . LABORATORY DATA: Glucose 201. ASSESSMENT: Symptom palencia, good control. Januvia 100 mg p.o. q.a.m., . Hipolito Roberson M.D. DR: VENANCIO JOB#: [id number] CC:
[2018-12-22 04:00] VITALS: BP 135/73
[2018-12-22 04:53] LABS: BASOPHILS % (AUTO) 0.3 % (0.0-2.0); EOSINOPHILS % (AUTO) 2.8 % (0.0-3.0); HEMATOCRIT 36.9 % (42.0-52.0); HEMOGLOBIN 12.4 G/DL (14.2-18.0); LYMPHOCYTES % (AUTO) 26.3 % (20.0-45.0); MEAN CORPUSCULAR VOLUME 93 FL (80-99); MONOCYTES % (AUTO) 6.2 % (1.0-10.0); NEUTROPHILS % (AUTO) 64.4 % (45.0-75.0); PLATELET COUNT 195 K/UL (150-450); RED BLOOD COUNT 3.97 M/UL (4.70-6.10); RED CELL DISTRIBUTION WIDTH 10.7 % (11.6-14.8); WHITE BLOOD COUNT 6.2 K/UL (4.8-10.8)
[2018-12-22 05:13] LABS: ANION GAP 13 mmol/L (5-15); BLOOD UREA NITROGEN 31 mg/dL (7-18); CALCIUM 9.2 MG/DL (8.5-10.1); CARBON DIOXIDE 20 MMOL/L (21-32); CHLORIDE 103 MMOL/L (98-107); CREATININE 1.4 MG/DL (0.55-1.30); POTASSIUM 3.9 MMOL/L (3.5-5.1); SODIUM 136 MMOL/L (136-145)
[2018-12-22] MEDS: NovoLOG Insulin Flexpen SUBQ SCH ×4 (06:20→20:22)
--- NOTE | 2018-12-22 07:10 | NUR ---
NURSE NOTES: pt received pt from Cooper SHANKS. pt is AOx4. resting on the bed. no arythmia reported pt, no SOB, no respiratory distress. no verbalization need. call light within reach.
--- NOTE | 2018-12-22 07:16 | NUR ---
HAND-OFF: Report given to Ruchi SHANKS.
[2018-12-22 08:00] VITALS: BP 136/71
[2018-12-22 12:00] VITALS: BP 148/74
--- NOTE | 2018-12-22 14:22 | Hematology/Onc Progress Note ---
Assessment/Plan Assessment/Plan Assessment and Recs: # Anemia of chronic disease due to underlying chronic medical issues, multifactorial causes --> Anemia workup has been ordered, rule out gi bleed (FERRITIN is wnl) --> No evidence of hemolysis is noted, peripheral smear has been reviewed. --> Hgb goal >7. Transfuse prn. --> Epogen or iron at this time is not particularly indicated --> Medications have been reviewed --> low threshold for gi evaluation in case has occult + --> bone marrow biopsy is not indicated given the other more likely causes # Syncope with head injury, ct brain neg --> cards consulted --> on htn meds # Head injury --> tylenol and nsaids # Hyperglycemia --> a1c goal <8 --> accuchecks and qac/qhs # AMIRAH --> as per renal care --> ivf given # DM2 - hgb 12 --> qac and qhs accuchecks The timing of this note does not necessarily reflect the time of the patient was seen. Greatly appreciate consultation! Subjective HEENT: Denies: no symptoms, eye pain, blurred vision, tearing, double vision, ear pain, ear discharge, nose pain, nose congestion, throat pain, throat swelling, mouth pain, mouth swelling, other Cardiovascular: Denies: no symptoms, chest pain, edema, irregular heart rate, lightheadedness, palpitations, syncope, other Respiratory: Denies: no symptoms, cough, shortness of breath, SOB with excertion, SOB at rest, sputum, wheezing, other Gastrointestinal/Abdominal: Denies: no symptoms, abdomen distended, abdominal pain, black stools, tarry stools, blood in stool, constipated, diarrhea, difficulty swallowing, nausea, poor appetite, poor fluid intake, rectal bleeding , vomiting, other Genitourinary: Denies: no symptoms, burning, discharge, frequency, flank pain, hematuria, incontinence, pain, urgency, other Neurologic/Psychiatric: Denies: no symptoms, anxiety, depressed, emotional problems, headache, numbness, paresthesia, pre-existing deficit, seizure, tingling, tremors, weakness, other Endocrine: Denies: no symptoms, excessive sweating, flushing, intolerance to cold, intolerance to heat, increased hunger, increased thirst, increased urine, unexplained weight gain, unexplained weight loss, other Allergies: Coded Allergies: No Known Allergies (Unverified , 12/19/18) Subjective 12/22: no events, no fevers, no major changes, seen by endo Objective Objective Current Medications Medications (Trade) Dose Ordered Sig/Chilo Route PRN Reason Start Time Stop Time Status Last Admin Dose Admin Acetaminophen (Tylenol) 500 mg Q4H PRN ORAL Mild Pain/Temp > 100.5 12/20/18 01:00 01/19/19 00:59 Atorvastatin Calcium (Lipitor) 10 mg DAILY ORAL 12/21/18 09:00 01/20/19 08:59 12/22/18 08:31 Dextrose (Dextrose 50%) 25 ml Q30M PRN IV Hypoglycemia 12/20/18 01:00 01/19/19 00:59 Dextrose (Dextrose 50%) 50 ml Q30M PRN IV Hypoglycemia 12/20/18 01:00 01/19/19 00:59 Insulin Aspart (NovoLOG) BEFORE MEALS AND HS SUBQ 12/20/18 06:30 01/19/19 06:29 12/22/18 11:54 Levothyroxine Sodium (Synthroid) 50 mcg DAILY@0630 ORAL 12/21/18 06:30 01/20/19 06:29 12/22/18 06:19 Sitagliptin Phosphate (Januvia) 100 mg DAILY ORAL 12/21/18 09:00 01/20/19 08:59 12/22/18 08:31 Last 24 Hour Vital Signs Date Time Temp Pulse Resp B/P (MAP) Pulse Ox O2 Delivery O2 Flow Rate FiO2 12/22/18 12:00 98.9 88 18 148/74 (98) 96 12/22/18 12:00 89 12/22/18 09:00 Room Air 12/22/18 08:00 101 12/22/18 08:00 98.1 86 23 136/71 (92) 97 12/22/18 04:00 78 12/22/18 04:00 98.4 78 18 135/73 (93) 97 12/22/18 04:00 100 92 105 12/22/18 00:00 98.2 78 18 131/74 (93) 96 12/22/18 00:00 78 12/21/18 21:00 Room Air 12/21/18 20:00 98.6 93 18 130/77 (94) 97 12/21/18 20:00 93 12/21/18 16:00 98.2 85 17 137/72 (93) 96 12/21/18 15:30 83 12/21/18 11:53 97.5 81 18 157/88 (111) 97 12/21/18 11:31 80 12/21/18 08:00 76 79 103 12/21/18 08:00 Room Air 12/21/18 08:00 97.3 76 17 137/65 (89) 97 12/21/18 07:58 84 12/21/18 04:00 Room Air 12/21/18 04:00 98.3 73 16 138/76 (96) 97 12/21/18 04:00 76 12/21/18 00:00 70 12/21/18 00:00 98.8 74 16 140/70 (93) 98 12/21/18 00:00 Room Air 12/20/18 20:00 83 95 101 12/20/18 20:00 Room Air 12/20/18 20:00 98.8 83 18 134/72 (92) 95 12/20/18 20:00 86 12/20/18 16:00 98.9 78 21 145/75 (98) 97 12/20/18 16:00 Room Air 12/20/18 16:00 83 12/20/18 14:35 78 90 95 Intake and Output 12/21/18 12/22/18 19:00 07:00 Intake Total 340 ml 200 ml Output Total 300 ml 600 ml Balance 40 ml -400 ml Intake Oral 340 ml 200 ml Output Urine Total 300 ml 600 ml # Voids 2 2 Labs Test 12/19/18 19:30 12/19/18 20:10 12/20/18 03:05 12/21/18 03:11 White Blood Count 5.6 K/UL (4.8-10.8) 5.2 K/UL (4.8-10.8) Red Blood Count 4.08 M/UL (4.70-6.10) 3.36 M/UL (4.70-6.10) Hemoglobin 12.9 G/DL (14.2-18.0) 10.5 G/DL (14.2-18.0) Hematocrit 37.3 % (42.0-52.0) 31.4 % (42.0-52.0) Mean Corpuscular Volume 91 FL (80-99) 94 FL (80-99) Mean Corpuscular Hemoglobin 31.5 PG (27.0-31.0) 31.4 PG (27.0-31.0) Mean Corpuscular Hemoglobin Concent 34.5 G/DL (32.0-36.0) 33.5 G/DL (32.0-36.0) Red Cell Distribution Width 10.8 % (11.6-14.8) 10.7 % (11.6-14.8) Platelet Count 197 K/UL (150-450) 180 K/UL (150-450) Mean Platelet Volume 6.1 FL (6.5-10.1) 6.4 FL (6.5-10.1) Neutrophils (%) (Auto) 66.3 % (45.0-75.0) 66.2 % (45.0-75.0) Lymphocytes (%) (Auto) 26.5 % (20.0-45.0) 24.9 % (20.0-45.0) Monocytes (%) (Auto) 4.5 % (1.0-10.0) 6.3 % (1.0-10.0) Eosinophils (%) (Auto) 2.6 % (0.0-3.0) 2.1 % (0.0-3.0) Basophils (%) (Auto) 0.2 % (0.0-2.0) 0.5 % (0.0-2.0) Prothrombin Time 10.1 SEC (9.30-11.50) Prothromb Time International Ratio 0.9 (0.9-1.1) Activated Partial Thromboplast Time 25 SEC (23-33) Sodium Level 130 MMOL/L (136-145) 136 MMOL/L (136-145) Potassium Level 4.1 MMOL/L (3.5-5.1) 4.3 MMOL/L (3.5-5.1) Chloride Level 96 MMOL/L (98-107) 106 MMOL/L (98-107) Carbon Dioxide Level 23 MMOL/L (21-32) 20 MMOL/L (21-32) Anion Gap 11 mmol/L (5-15) 10 mmol/L (5-15) Blood Urea Nitrogen 25 mg/dL (7-18) 24 mg/dL (7-18) Creatinine 1.5 MG/DL (0.55-1.30) 1.2 MG/DL (0.55-1.30) Estimat Glomerular Filtration Rate mL/min (>60) mL/min (>60) Glucose Level 503 MG/DL (74-106) 386 MG/DL (74-106) Calcium Level 9.7 MG/DL (8.5-10.1) 8.2 MG/DL (8.5-10.1) Magnesium Level 2.0 MG/DL (1.8-2.4) Total Bilirubin 0.4 MG/DL (0.2-1.0) 0.4 MG/DL (0.2-1.0) Aspartate Amino Transf (AST/SGOT) 15 U/L (15-37) 10 U/L (15-37) Alanine Aminotransferase (ALT/SGPT) 12 U/L (12-78) 11 U/L (12-78) Alkaline Phosphatase 104 U/L (46-116) 78 U/L (46-116) Troponin I 0.000 ng/mL (0.000-0.056) 0.012 ng/mL (0.000-0.056) Pro-B-Type Natriuretic Peptide 174 pg/mL (0-125) Total Protein 8.0 G/DL (6.4-8.2) 5.8 G/DL (6.4-8.2) Albumin 3.9 G/DL (3.4-5.0) 3.0 G/DL (3.4-5.0) Globulin 4.1 g/dL 2.8 g/dL Albumin/Globulin Ratio 1.0 (1.0-2.7) 1.1 (1.0-2.7) Acetone Level Negative (NEGATIVE) Urine Color Pale yellow Urine Appearance Clear Urine pH 5 (4.5-8.0) Urine Specific [place] 1.010 (1.005-1.035) Urine Protein 1+ (NEGATIVE) Urine Glucose (UA) 4+ (NEGATIVE) Urine Ketones Negative (NEGATIVE) Urine Blood 1+ (NEGATIVE) Urine Nitrite Negative (NEGATIVE) Urine Bilirubin Negative (NEGATIVE) Urine Urobilinogen Normal MG/DL (0.0-1.0) Urine Leukocyte Esterase Negative (NEGATIVE) Urine RBC 2-4 /HPF (0 - 0) Urine WBC 0-2 /HPF (0 - 0) Urine Squamous Epithelial Cells None /LPF (NONE/OCC) Urine Bacteria Few /HPF (NONE) Hemoglobin A1c 12.6 % (4.3-6.0) Test 12/21/18 17:48 12/22/18 03:15 White Blood Count 6.9 K/UL (4.8-10.8) 6.2 K/UL (4.8-10.8) Red Blood Count 4.06 M/UL (4.70-6.10) 3.97 M/UL (4.70-6.10) Hemoglobin 12.8 G/DL (14.2-18.0) 12.4 G/DL (14.2-18.0) Hematocrit 36.5 % (42.0-52.0) 36.9 % (42.0-52.0) Mean Corpuscular Volume 90 FL (80-99) 93 FL (80-99) Mean Corpuscular Hemoglobin 31.6 PG (27.0-31.0) 31.1 PG (27.0-31.0) Mean Corpuscular Hemoglobin Concent 35.2 G/DL (32.0-36.0) 33.5 G/DL (32.0-36.0) Red Cell Distribution Width 10.1 % (11.6-14.8) 10.7 % (11.6-14.8) Platelet Count 199 K/UL (150-450) 195 K/UL (150-450) Mean Platelet Volume 6.0 FL (6.5-10.1) 6.3 FL (6.5-10.1) Neutrophils (%) (Auto) 66.3 % (45.0-75.0) 64.4 % (45.0-75.0) Lymphocytes (%) (Auto) 26.1 % (20.0-45.0) 26.3 % (20.0-45.0) Monocytes (%) (Auto) 5.3 % (1.0-10.0) 6.2 % (1.0-10.0) Eosinophils (%) (Auto) 2.0 % (0.0-3.0) 2.8 % (0.0-3.0) Basophils (%) (Auto) 0.3 % (0.0-2.0) 0.3 % (0.0-2.0) Differential Total Cells Counted 100 Neutrophils % (Manual) 65 % (45-75) Lymphocytes % (Manual) 24 % (20-45) Monocytes % (Manual) 5 % (1-10) Eosinophils % (Manual) 1 % (0-3) Basophils % (Manual) 3 % (0-2) Band Neutrophils 2 % (0-8) Platelet Estimate Adequate Platelet Morphology Normal Red Blood Cell Morphology Normal Prothrombin Time 10.3 SEC (9.30-11.50) Prothromb Time International Ratio 1.0 (0.9-1.1) Iron Level 63 ug/dL (50-175) Total Iron Binding Capacity 242 ug/dL (250-450) Percent Iron Saturation 26 % (15-50) Unsaturated Iron Binding 179 ug/dL (112-346) Ferritin 91 NG/ML (8-388) Carcinoembryonic Antigen 3.0 ng/mL (0.0-4.7) Vitamin B12 Level 607 PG/ML (193-986) Folate 7.8 NG/ML (8.6-58.9) Thyroid Stimulating Hormone (TSH) 1.694 uiU/mL (0.358-3.740) Sodium Level 136 MMOL/L (136-145) Potassium Level 3.9 MMOL/L (3.5-5.1) Chloride Level 103 MMOL/L (98-107) Carbon Dioxide Level 20 MMOL/L (21-32) Anion Gap 13 mmol/L (5-15) Blood Urea Nitrogen 31 mg/dL (7-18) Creatinine 1.4 MG/DL (0.55-1.30) Estimat Glomerular Filtration Rate mL/min (>60) Glucose Level 244 MG/DL (74-106) Calcium Level 9.2 MG/DL (8.5-10.1) Height (Feet): 5 Height (Inches): 5.00 Weight (Pounds): 112 Objective Physical Exam: Vitals: reviewed General Appearance: NAD HEENT: normocephalic, atraumatic Neck: non-tender, normal alignment Respiratory/Chest: normal breath sounds bilaterally Cardiovascular/Chest: normal peripheral pulses, normal rate Abdomen: normal bowel sounds, soft, nontender Extremities: normal range of motion Juan Pablo Mittal MD Dec 22, 2018 14:22
--- NOTE | 2018-12-22 14:24 | Cardiac Electrophysiology PN ---
Assessment/Plan Assessment/Plan 1. Syncope due to uncontrolled diabetes, glucose was 503. Ruled out for [place] EF 60%. In SR 2. Hypertension. Currently stable off antihypertensives 3. Diabetes. On insulin. 4. Anemia of chronic disease (or of iron deficiency) . No evidence of hemolysis is noted per Dr Lisa MARTIN RN Subjective Subjective No CP or SOB. In SR in NAD. Still being monitored for BS. Objective Last 24 Hour Vital Signs Date Time Temp Pulse Resp B/P (MAP) Pulse Ox O2 Delivery O2 Flow Rate FiO2 12/22/18 12:00 98.9 88 18 148/74 (98) 96 12/22/18 12:00 89 12/22/18 09:00 Room Air 12/22/18 08:00 101 12/22/18 08:00 98.1 86 23 136/71 (92) 97 12/22/18 04:00 78 12/22/18 04:00 98.4 78 18 135/73 (93) 97 12/22/18 04:00 100 92 105 12/22/18 00:00 98.2 78 18 131/74 (93) 96 12/22/18 00:00 78 12/21/18 21:00 Room Air 12/21/18 20:00 98.6 93 18 130/77 (94) 97 12/21/18 20:00 93 12/21/18 16:00 98.2 85 17 137/72 (93) 96 12/21/18 15:30 83 Intake and Output 12/21/18 12/22/18 19:00 07:00 Intake Total 340 ml 200 ml Output Total 300 ml 600 ml Balance 40 ml -400 ml Intake Oral 340 ml 200 ml Output Urine Total 300 ml 600 ml # Voids 2 2 Laboratory Tests Test 12/21/18 17:48 12/22/18 03:15 White Blood Count 6.9 K/UL (4.8-10.8) 6.2 K/UL (4.8-10.8) Red Blood Count 4.06 M/UL (4.70-6.10) L 3.97 M/UL (4.70-6.10) L Hemoglobin 12.8 G/DL (14.2-18.0) L 12.4 G/DL (14.2-18.0) L Hematocrit 36.5 % (42.0-52.0) L 36.9 % (42.0-52.0) L Mean Corpuscular Volume 90 FL (80-99) 93 FL (80-99) Mean Corpuscular Hemoglobin 31.6 PG (27.0-31.0) H 31.1 PG (27.0-31.0) H Mean Corpuscular Hemoglobin Concent 35.2 G/DL (32.0-36.0) 33.5 G/DL (32.0-36.0) Red Cell Distribution Width 10.1 % (11.6-14.8) L 10.7 % (11.6-14.8) L Platelet Count 199 K/UL (150-450) 195 K/UL (150-450) Mean Platelet Volume 6.0 FL (6.5-10.1) L 6.3 FL (6.5-10.1) L Neutrophils (%) (Auto) 66.3 % (45.0-75.0) 64.4 % (45.0-75.0) Lymphocytes (%) (Auto) 26.1 % (20.0-45.0) 26.3 % (20.0-45.0) Monocytes (%) (Auto) 5.3 % (1.0-10.0) 6.2 % (1.0-10.0) Eosinophils (%) (Auto) 2.0 % (0.0-3.0) 2.8 % (0.0-3.0) Basophils (%) (Auto) 0.3 % (0.0-2.0) 0.3 % (0.0-2.0) Differential Total Cells Counted 100 Neutrophils % (Manual) 65 % (45-75) Lymphocytes % (Manual) 24 % (20-45) Monocytes % (Manual) 5 % (1-10) Eosinophils % (Manual) 1 % (0-3) Basophils % (Manual) 3 % (0-2) H Band Neutrophils 2 % (0-8) Platelet Estimate Adequate Platelet Morphology Normal Red Blood Cell Morphology Normal Prothrombin Time 10.3 SEC (9.30-11.50) Prothromb Time International Ratio 1.0 (0.9-1.1) Iron Level 63 ug/dL (50-175) Total Iron Binding Capacity 242 ug/dL (250-450) L Percent Iron Saturation 26 % (15-50) Unsaturated Iron Binding 179 ug/dL (112-346) Ferritin 91 NG/ML (8-388) Carcinoembryonic Antigen 3.0 ng/mL (0.0-4.7) Vitamin B12 Level 607 PG/ML (193-986) Folate 7.8 NG/ML (8.6-58.9) L Thyroid Stimulating Hormone (TSH) 1.694 uiU/mL (0.358-3.740) Sodium Level 136 MMOL/L (136-145) Potassium Level 3.9 MMOL/L (3.5-5.1) Chloride Level 103 MMOL/L (98-107) Carbon Dioxide Level 20 MMOL/L (21-32) L Anion Gap 13 mmol/L (5-15) Blood Urea Nitrogen 31 mg/dL (7-18) H Creatinine 1.4 MG/DL (0.55-1.30) H Estimat Glomerular Filtration Rate mL/min (>60) Glucose Level 244 MG/DL (74-106) H Calcium Level 9.2 MG/DL (8.5-10.1) Objective HEAD AND NECK: No JVD. LUNGS: Clear. CARDIOVASCULAR: Regular S1 and S2 with no gallop or murmur. ABDOMEN: Soft. EXTREMITIES: No pitting edema. Cornelio Donato MD Dec 22, 2018 14:24
[2018-12-22 16:00] VITALS: BP 129/75
--- NOTE | 2018-12-22 17:16 | NUR ---
SKIN TANNERALARM SERVICE TECHNICIAN SI: SYNCOPE,HYPERGLYCEMIA T. 98.9 HR 105 RR 18 B/P 148/74 BUN 31 CR 1.4 IS: SYNTHROID PO LIPITOR PO STEP DOWN STATUS
[2018-12-22] MEDS: Neosporin Oint Ud Pkt TOPIC SCH (17:59)
--- NOTE | 2018-12-22 19:15 | NUR ---
NURSE NOTES: Received report from Ruchi SHANKS, pt. in bed awake- Slovenian speaking- A/O x's 4- able to make needs known, telemetry monitor on, no signs or symptoms of acute cardiac or respiratory distress, bed in lowest position and call light within easy reach, bed alarm on and side rails up x'3, safety brakes engaged, SCD's on, pt. appears to be sating well on room air- no distress noted, urinal at bedside and within easy reach, pt appears to be clean and dry, LFA 22G- IV intact and patent, safety measures continued, will continue with plan of care.
--- NOTE | 2018-12-22 19:28 | NUR ---
HAND-OFF: Report given to vishal freeman.
[2018-12-22] MEDS ORDERED: NovoLOG Insulin Flexpen SUBQ SCH (19:30)
[2018-12-22 20:00] VITALS: BP 130/71
[2018-12-22] MEDS: Levemir Flexpen SUBQ SCH (20:22)
[2018-12-23] VITALS: BP 135/74
[2018-12-23 04:00] VITALS: BP 141/73
--- NOTE | 2018-12-23 05:15 | Geriatric Medicine Prog Note ---
DATE: 12/22/2018 NOTE: POOR AUDIO SUBJECTIVE: The patient therapy status post increased feeling . Hipolito Roberson M.D. DRShantell CRAFT JOB#: [id number] CC:
[2018-12-23] MEDS: NovoLOG Insulin Flexpen SUBQ SCH ×4 (06:25→11:20)
[2018-12-23 06:30] LABS: BASOPHILS % (AUTO) 0.3 % (0.0-2.0); EOSINOPHILS % (AUTO) 2.1 % (0.0-3.0); HEMATOCRIT 37.8 % (42.0-52.0); HEMOGLOBIN 12.9 G/DL (14.2-18.0); LYMPHOCYTES % (AUTO) 24.5 % (20.0-45.0); MEAN CORPUSCULAR VOLUME 92 FL (80-99); MONOCYTES % (AUTO) 6.7 % (1.0-10.0); NEUTROPHILS % (AUTO) 66.3 % (45.0-75.0); PLATELET COUNT 190 K/UL (150-450); RED BLOOD COUNT 4.11 M/UL (4.70-6.10); RED CELL DISTRIBUTION WIDTH 10.7 % (11.6-14.8); WHITE BLOOD COUNT 6.3 K/UL (4.8-10.8)
--- NOTE | 2018-12-23 06:58 | NUR ---
HAND-OFF: Report given to Ruchi SHANKS, pt. remains stable and no signs of distress noted.
--- NOTE | 2018-12-23 07:07 | NUR ---
NURSE NOTES: received patient report from vishal freeman. patient is on bed asleep. not in acute distress. no arrythmias reported during the night. bed is low and locked for safety. will follow plan of care.
[2018-12-23 07:42] LABS: ANION GAP 12 mmol/L (5-15); BLOOD UREA NITROGEN 37 mg/dL (7-18); CALCIUM 9.5 MG/DL (8.5-10.1); CARBON DIOXIDE 21 MMOL/L (21-32); CHLORIDE 103 MMOL/L (98-107); CREATININE 1.3 MG/DL (0.55-1.30); POTASSIUM 3.6 MMOL/L (3.5-5.1); SODIUM 136 MMOL/L (136-145)
[2018-12-23 07:58] VITALS: BP 113/71
[2018-12-23] MEDS: Neosporin Oint Ud Pkt TOPIC SCH (08:03)
[2018-12-23] MEDS: Levemir Flexpen SUBQ SCH (08:06)
[2018-12-23 11:21] VITALS: BP 139/82
--- NOTE | 2018-12-23 13:30 | NUR ---
NURSE NOTES: patient left facility with family member , jeromy. discharged to home, self care,Iv line removed, bleeding was stopped. desk monitor removed as well. patient is stable, not in acute distress. belongings checked and signed by the patient and myself. educate to see primary MD and radiology equipment servicer for his blood sugar. family member made aware as well.education regarding patients condition and medications were explained.
== END 2018-12-23 13:30 | disposition home or self-care (01) | DRG 638 ==
LOC: EDBD 19:14 → EMR 21:03 → 2W 21:29 → EDBEDREQ 22:21 → 2W 12-20
DX: E11.65 Type 2 diabetes mellitus with hyperglycemia (principal); E87.1 Hypo-osmolality and hyponatremia; N17.9 Acute kidney failure, unspecified; S09.90XA Unspecified injury of head, initial encounter; S01.01XA Laceration without foreign body of scalp, initial encounter; W19.XXXA Unspecified fall, initial encounter; E03.9 Hypothyroidism, unspecified; E78.5 Hyperlipidemia, unspecified; I10 Essential (primary) hypertension; Z79.4 Long term (current) use of insulin; D63.8 Anemia in other chronic diseases classified elsewhere; R55 Syncope and collapse
CPT/HCPCS: 36415; 70450; 80048; 80053; 81003; 82009; 82378; 82607; 82728; 82746; 82962; 83036; 83540; 83550; 83735; 83880; 84443; 84484; 85007; 85025; 85060; 85610; 85730; 86850; 86900; 86901; 93005; 93306; 93880; 96361; 96374; 96376; 99285; J1815; S5561